=== PATIENT | female | born 1990 | race Caucasian/White ===

== ENCOUNTER 2017-04-18 00:38 | Emergency (ER) | payer MEDICAID ==
[2017-04-18 00:38] VITALS: BMI 27.8
[2017-04-18 00:50] VITALS: O2SAT 97
[2017-04-18] MEDS ORDERED: Sodium Chloride 0.9% 1,000 ML IV ONE (01:03)
[2017-04-18] MEDS ORDERED: Sodium Chloride 0.9% 1,000 ML ONE ×2 (01:18)
[2017-04-18 01:26] LABS: BASO % 0.2 % (0.0-2.0); EOS % 0.1 % (0.0-4.0); HEMATOCRIT 41.5 % (34.0-47.0); LYMPH # 0.6 K/uL (1.0-4.3); LYMPH % 3.9 % (20.0-40.0); MEAN CELL VOLUME 80.7 fL (81.0-99.0); MEAN CORPUSCULAR HEMOGLOBIN 26.6 pg (27.0-31.0); MEAN PLATELET VOLUME 9.2 fL (7.2-11.7); MONO # 0.7 K/uL (0.0-0.8); MONO % 4.6 % (0.0-10.0); PLATELET COUNT 218 K/uL (130-400); RED CELL DISTRIBUTION WIDTH 13.6 % (11.5-14.5); WHITE BLOOD COUNT 14.9 K/uL (4.8-10.8)
[2017-04-18 01:36] LABS: RBC URINE 1 /hpf (0-3); URINE BACTERIA RARE (<OCC); URINE BILIRUBIN NEGATIVE (NEGATIVE); URINE BLOOD NEGATIVE (NEGATIVE); URINE COLOR Yellow (YELLOW); URINE GLUCOSE (UA) NORMAL (Normal); URINE KETONE 2+ mg/dL (NEGATIVE); URINE LEUKOCYTE ESTERASE NEG Leu/uL (Negative); URINE PROTEIN 2+ mg/dL (NEGATIVE); URINE UROBILINOGEN NORMAL mg/dL (0.2-1.0); WBC URINE 3 /hpf (0-5)
[2017-04-18 01:52] LABS: CALCIUM 9.2 mg/dl (8.6-10.4); GFR AFRICAN-AMERICAN > 60; GLUCOSE,RANDOM 125 mg/dL (65-105)
[2017-04-18 02:00] LABS: ALB/GLOB RATIO 1.4 (1.0-2.1); ALKALINE PHOSPHATASE 57 U/L (38-126); ALT/SGPT 28 U/L (9-52); AST/SGOT 39 U/L (14-36); BLOOD UREA NITROGEN 20 mg/dL (7-17); CARBON DIOXIDE 25 mmol/L (22-30); CHLORIDE 104 mmol/L (98-107); POTASSIUM 4.7 mmol/L (3.6-5.2); SODIUM 142 mmol/L (132-148); TOTAL PROTEIN 8.3 g/dL (6.3-8.3)
[2017-04-18 02:23] LABS: NEUTROPHIL 87 % (50-75); TOTAL CELLS COUNTED 100
[2017-04-18 02:55] VITALS: BP 110/76; PULSE 102; RESP 20; TEMP 98.8
--- NOTE | 2017-04-18 02:55 | C.PDOC ---
History Of Present Illness 26 year old female presents to the ED for evaluation of vomiting and diarrhea which began this morning. Patient presents to the ED with her daughter, who is also experiencing similar symptoms. Patient is unsure whether her symptoms are associated with food intake and denies fever, chills, sick contacts or recent travel. Time Seen by Provider: 04/18/17 00:55 Chief Complaint (Nursing): Abdominal Pain History Per: Patient History/Exam Limitations: no limitations Onset/Duration Of Symptoms: Hrs Current Symptoms Are (Timing): Still Present Associated Symptoms: Vomiting, Diarrhea. denies: Fever, Chills Recent travel outside of the [place]: No Additional History Per: Patient Abnormal Vaginal Bleeding: No Past Medical History Reviewed: Historical Data, Nursing Documentation, Vital Signs Vital Signs: Last Vital Signs Temp 98.8 F 04/18/17 02:54 Pulse 102 H 04/18/17 02:54 Resp 20 04/18/17 02:54 BP 110/76 04/18/17 02:54 Pulse Ox 97 04/18/17 02:55 - Medical History PMH: No Chronic Diseases Denies: Anxiety, Bipolar Disorder, Depression, HIV, Paranoia, Post Traumatic Stress Disorder, Chronic Kidney Disease, Schizophrenia Surgical History: No Surg Hx Family History: States: Unknown Family Hx - Social History Hx Alcohol Use: No Hx Substance Use: No - Immunization History Hx Tetanus Toxoid Vaccination: No Hx Influenza Vaccination: No Hx Pneumococcal Vaccination: No Review Of Systems Constitutional: Negative for: Fever, Chills Gastrointestinal: Positive for: Vomiting, Diarrhea Physical Exam - Physical Exam Appears: Non-toxic, No Acute Distress Skin: Normal Color, Warm, Dry Oral Mucosa: Moist Neck: Supple Chest: Symmetrical, No Deformity, No Tenderness Cardiovascular: Rhythm Regular, No Murmur Respiratory: Normal Breath Sounds, No Rales, No Rhonchi, No Wheezing Gastrointestinal/Abdominal: Soft, No Tenderness, No Guarding, No Rebound Extremity: Normal ROM, Capillary Refill (less than 2 seconds ) Neurological/Psych: Oriented x3, Normal Speech, Normal Cognition ED Course And Treatment - Laboratory Results Result Diagrams: 04/18/17 01:23 04/18/17 01:23 O2 Sat by Pulse Oximetry: 97 (on RA) Pulse Ox Interpretation: Normal Progress Note: Bloodwork and UA ordered and reviewed. Pepcid IVP, Zofran IVP, and IV Fluids administered. Patient was PO challenged and able to tolerate PO intake. On reassessment, patient is resting comfortably, remains afebrile, and reports an improvement in her symptoms. Patient is stable for discharge and is advised to f/u with her PMD within 1-2 days for further evaluation and/or return to the ED if symptoms persist or worsen. Reassessment Condition: Improved Disposition Counseled Patient/Family Regarding: Diagnosis, Need For Followup, Rx Given - Disposition Referrals: [facility] [Outside] Disposition: HOME/ ROUTINE Disposition Time: 02:53 Condition: STABLE Additional Instructions: clear fluids diet , may give applle sauce or jello No MILK or solid foods for 24 hrs Please follow up with PMD Return to ER if worse Prescriptions: Ondansetron [Zofran Odt] 4 mg PO TID #10 odt Instructions: Gastroenteritis (ED) Forms: [facility] (Paraguayan), Work Excuse - Clinical Impression Clinical Impression: Gastroenteritis - PA / [employer] / Resident Statement MD/DO has reviewed & agrees with the documentation as recorded. - Scribe Statement The provider has reviewed the documentation as recorded by the Scribe (Margaret Leos) All medical record entries made by the Scribe were at my direction and personally dictated by me. I have reviewed the chart and agree that the record accurately reflects my personal performance of the history, physical exam, medical decision making, and the department course for this patient. I have also personally directed, reviewed, and agree with the discharge instructions and disposition.
== END 2017-04-18 03:11 | disposition home or self-care (01) ==
LOC: C.ER 00:38
DX: K52.9 Noninfective gastroenteritis and colitis, unspecified (principal)
CPT/HCPCS: 36415; 80053; 81001; 83690; 84703; 85025; 96361; 96374; 96375; 99285; J2405; J7040